=== PATIENT | male | born 1970 | race Caucasian/White ===

== ENCOUNTER → 2023-10-02 | Outpatient (CLI) ==
[~2023-10-02] MED LIST: OXYC1TAB23 PO
== END ==
LOC: M SOG 15:53
PROVIDERS: ATTEND Orthopaedic Surgery Hand Surgery
DX: S60.455A Superficial foreign body of left ring finger, initial encounter (principal); S60.457A Superficial foreign body of left little finger, initial encounter; Y93.9 Activity, unspecified; Y92.9 Unspecified place or not applicable

== ENCOUNTER 2023-10-03 09:45 | Day surgery (SDC) | payer BC ==
[~2023-10-03] VITALS: Ht 180.3 cm; Wt 92.4 kg
[2023-10-03] MEDS ORDERED: SCOPOLAMINE 1MG TRANSDERMAL PATCH TOP ONE (10:30)
[2023-10-03] MEDS ORDERED: propofoL 200 MG/20 ML VIAL As Ordered ONE (11:22)
[2023-10-03] MEDS ORDERED: HYDROmorphone HCL 2MG/ML 1ML VIAL As Ordered ONE (11:22)
[2023-10-03] MEDS ORDERED: LIDOCAINE 2% 100MG/5ML SDV (FOR ANES.) As Ordered ONE (11:22)
[2023-10-03] MEDS ORDERED: MIDAZOLAM INJ 2MG/2ML VIAL As Ordered ONE (11:22)
[2023-10-03] MEDS ORDERED: ACETAMINOPHEN 1000MG 100ML IV BAG As Ordered ONE (11:23)
[2023-10-03] MEDS ORDERED: ONDANSETRON 4MG 2ML VIAL As Ordered ONE (11:23)
[2023-10-03] MEDS ORDERED: KETOROLAC 60MG 2ML VIAL As Ordered ONE (11:23)
[2023-10-03] MEDS ORDERED: ceFAZolin 2 GM/D5W 50 ML IV BAG As Ordered ONE (11:55)
[2023-10-03] MEDS: ceFAZolin SOD 2 GM in IV 1 EA IV ONE (12:00)
[2023-10-03] MEDS: BACITRACIN OINTMENT 30GM TUBE As Ordered ONE (14:43)
[2023-10-03] MEDS ORDERED: fentaNYL 100 MCG/2 ML INJECTION IV PRN (15:05)
[2023-10-03] MEDS ORDERED: HYDROMORPHONE HCL 0.5 MG/ 0.5 ML SYRINGE IV PRN (15:05)
[2023-10-03] MEDS ORDERED: LR 1,000 ML IV SCH (15:05)
[2023-10-03] MEDS ORDERED: oxyCODONE 5MG TAB PO PRN (15:05)
[2023-10-03] MEDS ORDERED: OXYC1TAB23 PO (15:19)
[2023-10-03] MEDS: ONDANSETRON 4MG 2ML VIAL IV PRN (15:26)
[2023-10-03] MEDS: METOCLOPRAMIDE INJ 10MG/2ML VIAL IV PRN (15:44)
[2023-10-03 17:34] VITALS: BP 120/60; TEMP 97.7; O2SAT 97
== END 2023-10-03 12:52 | disposition home or self-care (01) ==
LOC: M SDC 09:45
PROVIDERS: ATTEND Orthopaedic Surgery Hand Surgery
DX: S66.325A Laceration of extensor muscle, fascia and tendon of left ring finger at wrist and hand level, initial encounter (principal); S64.2 Injury of radial nerve at wrist and hand level; S64.495A Injury of digital nerve of left ring finger, initial encounter; S66.121A Laceration of flexor muscle, fascia and tendon of left index finger at wrist and hand level, initial encounter
CPT/HCPCS: 26356; 64912; 64913; C1762; J0131; J0665; J0690; J1100; J1170; J1885; J2250; J2405; J2765